=== PATIENT | female | born 1975 | race Caucasian/White ===

== ENCOUNTER 2017-04-23 22:14 | Inpatient (IN) | payer MEDICAID ==
[~2017-04-23] VITALS: Ht 152.4 cm; Wt 79.5 kg
[2017-04-23] MEDS ORDERED: NO HOME MEDS (22:30)
[2017-04-23] MEDS ORDERED: vancomycin/NS 1 GM ADD-VANTAGE 250 ML IV ONE (23:15)
[2017-04-23] MEDS ORDERED: iohexol 300mg/ml 100ml inj. ONE (23:29)
[2017-04-23] MEDS ORDERED: normal saline 1000ML IV soln IVB ONE (23:45)
[2017-04-24] MEDS ORDERED: bisacodyl 10mg suppository rectal RC PRN (00:20)
[2017-04-24] MEDS ORDERED: HYDROmorphone 1 mg/ml syringe IV PRN ×2 (00:20)
[2017-04-24] MEDS ORDERED: diphenhydrAMINE 25mg capsule PO PRN (00:20)
[2017-04-24] MEDS ORDERED: acetaminophen 325mg tablet PO PRN ×2 (00:20)
[2017-04-24] MEDS ORDERED: magnesium hydroxide 30ml (MOM) UD suspension PO PRN (00:20)
[2017-04-24] MEDS ORDERED: mag hydrox/Alum hydrox/simeth 30ml oral suspension PO PRN (00:20)
[2017-04-24] MEDS ORDERED: HYDROcodone/acetaminophen 5mg/325mg tablet PO PRN (00:20)
[2017-04-24] MEDS ORDERED: diphenhydrAMINE 50 mg/ml inj IV PRN (00:20)
[2017-04-24] MEDS ORDERED: acetaminophen 650mg rectal suppository RC PRN (00:20)
[2017-04-24] MEDS ORDERED: ondansetron/PF 4mg/2ml inj IV PRN (00:20)
[2017-04-24] MEDS ORDERED: metoclopramide 5 mg/ml inj IV PRN (00:20)
[2017-04-24] MEDS ORDERED: temazepam 15mg capsule PO PRN (00:32)
[2017-04-24] MEDS ORDERED: nicotine 21mg patch - 24 hr TD ONE (00:35)
[2017-04-24] MEDS ORDERED: vancomycin inj 500 MG in normal saline 100ml IV soln 100 ML IV ONE (00:50)
[2017-04-24 01:30] VITALS: BP 106/65
[2017-04-24] MEDS ORDERED: vancomycin 1,000mg inj IV ONE (01:35)
[2017-04-24] MEDS ORDERED: normal saline 100ml IV soln 100 ML IV ONE (01:40)
[2017-04-24] MEDS: piperacillin/tazo 4.5gm/100ml 100 ML IV SCH ×3 (02:06→16:00)
[2017-04-24] MEDS: normal saline 1000ml 1,000 ML IV SCH ×3 (02:07→20:17)
[2017-04-24 06:00] VITALS: BP 107/71
[2017-04-24 07:16] LABS: MAGNESIUM 2.1 MG/DL (1.5-2.4)
[2017-04-24] MEDS: pantoprazole 40mg Tablet.DR PO SCH (07:41)
[2017-04-24] MEDS: docusate sod 100mg capsule PO SCH ×2 (07:41→20:56)
[2017-04-24] MEDS: HYDROcodone/acetaminophen 10/325mg tab PO PRN ×3 (07:42→20:41)
[2017-04-24] MEDS ORDERED: vancomycin/NS 1 GM ADD-VANTAGE 250 ML IV SCH (08:00)
[2017-04-24] MEDS: heparin, porcine 5000 units/ml vial SQ SCH ×2 (08:00→20:56)
[2017-04-24] MEDS ORDERED: vancomycin/NS 1 GM ADD-VANTAGE 250 ML IV ONE (08:05)
[2017-04-24 08:10] LABS: ALBUMIN 2.3 G/DL (3.4-5.0); ANION GAP 11 (8-16); BLOOD UREA NITROGEN 10 MG/DL (7-18); BUN/CREATININE RATIO 14.3 (6.6-38.0); CALCIUM 8.4 MG/DL (8.5-10.1); CHLORIDE 109 MMOL/L (99-107); GLUCOSE 115 MG/DL (70-104); POTASSIUM 3.7 MMOL/L (3.5-5.1); SODIUM 143 MMOL/L (135-145); TOTAL CARBON DIOXIDE 23.4 MMOL/L (24-32); eGFR > 90 ML/MIN
[2017-04-24 10:00] VITALS: BP 93/55
[2017-04-24 14:00] LABS: BASOPHILS % (AUTO) 0.4 % (0-1); EOSINOPHILS # (AUTO) 0.4 X10'3 (0-0.9); EOSINOPHILS % (AUTO) 3.2 % (0-6); HEMATOCRIT 34.6 % (35.0-45.0); HEMOGLOBIN 11.5 g/dl (12.0-16.0); LYMPHOCYTES # (AUTO) 2.5 X10'3 (1.1-4.8); MEAN CORPUSCULAR HEMOGLOBIN 28.2 PG (27.0-31.0); MEAN CORPUSCULAR HGB CONC 33.2 % (33.0-36.5); MEAN CORPUSCULAR VOLUME 85.2 FL (78-98); MEAN PLATELET VOLUME 7.8 FL (7.4-10.4); MONOCYTES # (AUTO) 0.8 X10'3 (0-0.9); MONOCYTES % (AUTO) 6.2 % (2-12); NEUTROPHILS # (AUTO) 9.2 X10'3 (1.8-7.7); NEUTROPHILS % (AUTO) 71.2 % (42-75); PLATELET COUNT 306 X10'3 (140-440); RED BLOOD COUNT 4.07 X10'6 (4.20-5.60); RED CELL DISTRIBUTION WIDTH 13.6 % (11.5-14.5); WHITE BLOOD COUNT 12.9 X10'3 (4.5-11.0)
[2017-04-24] MEDS: vancomycin/NS 1 GM ADD-VANTAGE 250 ML IV SCH (17:14)
[2017-04-24] MEDS: lactobacillus rhamnosus 10,000 MMU CELLS/CAPSULE PO SCH (17:18)
[2017-04-24 18:00] VITALS: BP 95/52
[2017-04-24 21:14] LABS: URINE AMPHETAMINE SCREEN POSITIVE (Neg); URINE BARBITUATE SCREEN NEGATIVE (Neg); URINE BENZODIAZEPINES SCREEN NEGATIVE (Neg); URINE CANNABINOID SCREEN NEGATIVE (Neg); URINE COCAINE SCREEN NEGATIVE (Neg); URINE METHADONE SCREEN NEGATIVE (Neg); URINE OPIATE SCREEN POSITIVE (Neg); URINE PHENCYCLIDINE SCREEN NEGATIVE (Neg)
[2017-04-24 21:28] LABS: CLARITY,URINE CLEAR (Clear); COLOR,URINE YELLOW (Yellow); GLUCOSE, URINE NEGATIVE (Neg); KETONES,URINE NEGATIVE (Neg); LEUKOCYTE ESTERASE ,URINE NEGATIVE (Neg); NITRITES, URINE NEGATIVE (Neg); OCCULT BLOOD,URINE SMALL (Neg); PROTEIN,URINE TRACE mg/dl (Neg); UA COLLECTION TYPE VOIDED; UROBILINOGEN,URINE 0.2 E.U/dL (0.2-1.0)
[2017-04-24 22:00] VITALS: BP 105/56
[2017-04-24 22:06] LABS: BACTERIA,URINE 2+ /HPF (Neg); MUCUS STRANDS MANY /LPF (Neg); SQUAMOUS EPITHELIAL CELL,UR MANY /LPF (FEW); WBC,URINE 0-4 /HPF (0-4)
[2017-04-25] MEDS: piperacillin/tazo 4.5gm/100ml 100 ML IV SCH ×4 (00:07→23:45)
[2017-04-25] MEDS: vancomycin/NS 1 GM ADD-VANTAGE 250 ML IV SCH ×3 (01:54→17:43)
[2017-04-25] MEDS: HYDROcodone/acetaminophen 10/325mg tab PO PRN ×4 (05:45→21:16)
[2017-04-25] MEDS: normal saline 1000ml 1,000 ML IV SCH ×2 (05:46→16:17)
[2017-04-25 06:00] VITALS: BP 109/65
[2017-04-25 06:39] LABS: BASOPHILS % (AUTO) 0.4 % (0-1); EOSINOPHILS # (AUTO) 0.4 X10'3 (0-0.9); EOSINOPHILS % (AUTO) 4.3 % (0-6); HEMATOCRIT 32.8 % (35.0-45.0); HEMOGLOBIN 10.9 g/dl (12.0-16.0); LYMPHOCYTES # (AUTO) 2.3 X10'3 (1.1-4.8); LYMPHOCYTES % (AUTO) 25.9 % (21-51); MEAN CORPUSCULAR HEMOGLOBIN 28.3 PG (27.0-31.0); MEAN CORPUSCULAR HGB CONC 33.3 % (33.0-36.5); MEAN CORPUSCULAR VOLUME 84.8 FL (78-98); MONOCYTES # (AUTO) 0.5 X10'3 (0-0.9); MONOCYTES % (AUTO) 5.7 % (2-12); NEUTROPHILS # (AUTO) 5.7 X10'3 (1.8-7.7); NEUTROPHILS % (AUTO) 63.7 % (42-75); PLATELET COUNT 310 X10'3 (140-440); RED BLOOD COUNT 3.87 X10'6 (4.20-5.60); RED CELL DISTRIBUTION WIDTH 13.5 % (11.5-14.5)
[2017-04-25 07:00] LABS: ALANINE AMINOTRANSFERASE 18 U/L (12-78); ALBUMIN/GLOBULIN RATIO 0.5 (1.1-1.5); ALKALINE PHOSPHATASE 90 IU/L (46-116); ANION GAP 10 (8-16); ASPARTATE AMINO TRANSFERASE 14 U/L (10-37); BILIRUBIN,TOTAL 0.2 MG/DL (0.1-1.0); BLOOD UREA NITROGEN 10 MG/DL (7-18); BUN/CREATININE RATIO 16.7 (6.6-38.0); CALCIUM 7.9 MG/DL (8.5-10.1); CHLORIDE 108 MMOL/L (99-107); CHOL/HDL RATIO 5.9 (0.00-4.99); CHOLESTEROL 130 MG/DL (0-200); GLUCOSE 101 MG/DL (70-104); HDL CHOLESTEROL 22 MG/DL (35-60); LDL CHOLESTEROL 96 MG/DL (50-100); POTASSIUM 3.8 MMOL/L (3.5-5.1); SODIUM 140 MMOL/L (135-145); TOTAL CARBON DIOXIDE 22.2 MMOL/L (24-32); TOTAL PROTEIN 6.3 G/DL (6.4-8.2); TRIGLYCERIDES 68 MG/DL (20-135); eGFR > 90 ML/MIN
[2017-04-25] MEDS: pantoprazole 40mg Tablet.DR PO SCH (07:30)
[2017-04-25] MEDS: docusate sod 100mg capsule PO SCH ×2 (08:36→21:14)
[2017-04-25] MEDS: lactobacillus rhamnosus 10,000 MMU CELLS/CAPSULE PO SCH ×2 (08:36→17:50)
[2017-04-25] MEDS: heparin, porcine 5000 units/ml vial SQ SCH ×2 (08:38→21:16)
[2017-04-25 10:00] VITALS: BP 93/56
[2017-04-25] MEDS ORDERED: VANCOMYCIN LEVEL IV NR (15:30)
[2017-04-25] MEDS: nicotine 21mg patch - 24 hr TD SCH (17:51)
[2017-04-25 18:00] VITALS: BP 146/82
[2017-04-25 22:00] VITALS: BP 134/70
[2017-04-26] MEDS: vancomycin/NS 1 GM ADD-VANTAGE 250 ML IV SCH ×2 (01:25→09:14)
[2017-04-26] MEDS: normal saline 1000ml 1,000 ML IV SCH ×3 (01:29→22:17)
[2017-04-26 05:26] LABS: BASOPHILS # (AUTO) 0.1 X10'3 (0-0.2); BASOPHILS % (AUTO) 0.7 % (0-1); EOSINOPHILS # (AUTO) 0.3 X10'3 (0-0.9); EOSINOPHILS % (AUTO) 3.4 % (0-6); HEMATOCRIT 35.1 % (35.0-45.0); HEMOGLOBIN 11.7 g/dl (12.0-16.0); LYMPHOCYTES # (AUTO) 2.6 X10'3 (1.1-4.8); LYMPHOCYTES % (AUTO) 30.3 % (21-51); MEAN CORPUSCULAR HEMOGLOBIN 28.2 PG (27.0-31.0); MEAN CORPUSCULAR HGB CONC 33.3 % (33.0-36.5); MEAN CORPUSCULAR VOLUME 84.6 FL (78-98); MONOCYTES # (AUTO) 0.4 X10'3 (0-0.9); NEUTROPHILS # (AUTO) 5.1 X10'3 (1.8-7.7); NEUTROPHILS % (AUTO) 60.6 % (42-75); PLATELET COUNT 312 X10'3 (140-440); RED BLOOD COUNT 4.15 X10'6 (4.20-5.60); RED CELL DISTRIBUTION WIDTH 13.3 % (11.5-14.5); WHITE BLOOD COUNT 8.4 X10'3 (4.5-11.0)
[2017-04-26 05:49] LABS: ALANINE AMINOTRANSFERASE 23 U/L (12-78); ALBUMIN 2.1 G/DL (3.4-5.0); ALBUMIN/GLOBULIN RATIO 0.5 (1.1-1.5); ALKALINE PHOSPHATASE 96 IU/L (46-116); ANION GAP 9 (8-16); ASPARTATE AMINO TRANSFERASE 17 U/L (10-37); BILIRUBIN,TOTAL 0.2 MG/DL (0.1-1.0); BLOOD UREA NITROGEN 10 MG/DL (7-18); BUN/CREATININE RATIO 16.4 (6.6-38.0); CALCIUM 8.6 MG/DL (8.5-10.1); CHLORIDE 108 MMOL/L (99-107); CREATININE 0.61 MG/DL (0.40-0.90); GLUCOSE 97 MG/DL (70-104); SODIUM 141 MMOL/L (135-145); TOTAL CARBON DIOXIDE 23.7 MMOL/L (24-32); TOTAL PROTEIN 6.6 G/DL (6.4-8.2); eGFR > 90 ML/MIN
[2017-04-26 06:00] VITALS: BP 125/78
[2017-04-26] MEDS: HYDROcodone/acetaminophen 10/325mg tab PO PRN ×4 (06:09→20:38)
[2017-04-26] MEDS: docusate sod 100mg capsule PO SCH ×2 (09:14→20:31)
[2017-04-26] MEDS: lactobacillus rhamnosus 10,000 MMU CELLS/CAPSULE PO SCH ×2 (09:14→17:41)
[2017-04-26] MEDS: piperacillin/tazo 4.5gm/100ml 100 ML IV SCH ×3 (09:14→23:48)
[2017-04-26] MEDS: pantoprazole 40mg Tablet.DR PO SCH (09:14)
[2017-04-26] MEDS: nicotine 21mg patch - 24 hr TD SCH (09:14)
[2017-04-26] MEDS: heparin, porcine 5000 units/ml vial SQ SCH ×2 (09:15→20:31)
[2017-04-26 11:00] VITALS: BP 113/67
[2017-04-26] MEDS: vancomycin inj 1,250 MG in normal saline 250ml IV soln 250 ML IV SCH (15:03)
[2017-04-26 18:00] VITALS: BP 111/60
[2017-04-26 22:00] VITALS: BP 129/63
[2017-04-27] MEDS: vancomycin inj 1,250 MG in normal saline 250ml IV soln 250 ML IV SCH ×4 (00:48→16:00)
[2017-04-27 06:00] VITALS: BP_SYST 100; BP_SYST 132; BP_DIAS 64; BP_DIAS 92
[2017-04-27 07:00] LABS: BASOPHILS # (AUTO) 0.1 X10'3 (0-0.2); BASOPHILS % (AUTO) 0.6 % (0-1); EOSINOPHILS # (AUTO) 0.4 X10'3 (0-0.9); EOSINOPHILS % (AUTO) 4.5 % (0-6); HEMATOCRIT 35.6 % (35.0-45.0); HEMOGLOBIN 12.1 g/dl (12.0-16.0); LYMPHOCYTES # (AUTO) 1.9 X10'3 (1.1-4.8); LYMPHOCYTES % (AUTO) 22.2 % (21-51); MEAN CORPUSCULAR HEMOGLOBIN 28.3 PG (27.0-31.0); MEAN CORPUSCULAR HGB CONC 33.9 % (33.0-36.5); MEAN CORPUSCULAR VOLUME 83.5 FL (78-98); MEAN PLATELET VOLUME 7.4 FL (7.4-10.4); MONOCYTES # (AUTO) 0.5 X10'3 (0-0.9); MONOCYTES % (AUTO) 5.3 % (2-12); NEUTROPHILS # (AUTO) 5.8 X10'3 (1.8-7.7); NEUTROPHILS % (AUTO) 67.4 % (42-75); PLATELET COUNT 355 X10'3 (140-440); RED BLOOD COUNT 4.27 X10'6 (4.20-5.60); RED CELL DISTRIBUTION WIDTH 13.6 % (11.5-14.5); WHITE BLOOD COUNT 8.7 X10'3 (4.5-11.0)
[2017-04-27] MEDS: piperacillin/tazo 4.5gm/100ml 100 ML IV SCH ×2 (07:08→15:00)
[2017-04-27] MEDS: lactobacillus rhamnosus 10,000 MMU CELLS/CAPSULE PO SCH ×2 (07:09→17:14)
[2017-04-27] MEDS: pantoprazole 40mg Tablet.DR PO SCH (07:09)
[2017-04-27] MEDS: HYDROcodone/acetaminophen 10/325mg tab PO PRN ×6 (07:09→22:44)
[2017-04-27] MEDS: docusate sod 100mg capsule PO SCH ×2 (07:09→22:35)
[2017-04-27] MEDS: heparin, porcine 5000 units/ml vial SQ SCH ×2 (07:10→22:37)
[2017-04-27] MEDS: nicotine 21mg patch - 24 hr TD SCH (07:10)
[2017-04-27 07:48] LABS: ALANINE AMINOTRANSFERASE 23 U/L (12-78); ALBUMIN 2.3 G/DL (3.4-5.0); ALBUMIN/GLOBULIN RATIO 0.5 (1.1-1.5); ALKALINE PHOSPHATASE 101 IU/L (46-116); ANION GAP 8 (8-16); ASPARTATE AMINO TRANSFERASE 16 U/L (10-37); BILIRUBIN,TOTAL 0.2 MG/DL (0.1-1.0); BLOOD UREA NITROGEN 8 MG/DL (7-18); BUN/CREATININE RATIO 11.4 (6.6-38.0); CALCIUM 8.6 MG/DL (8.5-10.1); CHLORIDE 107 MMOL/L (99-107); GLUCOSE 100 MG/DL (70-104); POTASSIUM 4.1 MMOL/L (3.5-5.1); SODIUM 140 MMOL/L (135-145); TOTAL CARBON DIOXIDE 24.8 MMOL/L (24-32); eGFR > 90 ML/MIN
[2017-04-27] MEDS: LORazepam 2 mg/ml vial IV PRN ×3 (07:59→19:40)
[2017-04-27] MEDS: normal saline 1000ml 1,000 ML IV SCH ×2 (08:17→22:35)
[2017-04-27 10:35] VITALS: BP 133/78
[2017-04-27] MEDS ORDERED: VANCOMYCIN LEVEL IV NR (15:30)
[2017-04-27] MEDS ORDERED: benzocaine/menthol oral lozeng 1 EACH BOX MM PRN (17:45)
[2017-04-27 19:00] VITALS: BP 128/81
[2017-04-27 22:00] VITALS: BP 116/70
[2017-04-28] VITALS: BP 120/76
[2017-04-28] MEDS: piperacillin/tazo 4.5gm/100ml 100 ML IV SCH ×2 (00:29→07:16)
[2017-04-28] MEDS: HYDROcodone/acetaminophen 10/325mg tab PO PRN ×3 (01:10→17:06)
[2017-04-28] MEDS: vancomycin inj 1,250 MG in normal saline 250ml IV soln 250 ML IV SCH (01:11)
[2017-04-28 03:25] LABS: BASOPHILS % (AUTO) 0.3 % (0-1); EOSINOPHILS # (AUTO) 0.3 X10'3 (0-0.9); EOSINOPHILS % (AUTO) 3.2 % (0-6); HEMATOCRIT 34.3 % (35.0-45.0); HEMOGLOBIN 11.6 g/dl (12.0-16.0); LYMPHOCYTES # (AUTO) 2.3 X10'3 (1.1-4.8); LYMPHOCYTES % (AUTO) 22.7 % (21-51); MEAN CORPUSCULAR HEMOGLOBIN 28.4 PG (27.0-31.0); MEAN CORPUSCULAR HGB CONC 33.7 % (33.0-36.5); MEAN CORPUSCULAR VOLUME 84.3 FL (78-98); MEAN PLATELET VOLUME 7.2 FL (7.4-10.4); MONOCYTES # (AUTO) 0.5 X10'3 (0-0.9); MONOCYTES % (AUTO) 4.5 % (2-12); NEUTROPHILS # (AUTO) 7.2 X10'3 (1.8-7.7); NEUTROPHILS % (AUTO) 69.3 % (42-75); PLATELET COUNT 385 X10'3 (140-440); RED BLOOD COUNT 4.07 X10'6 (4.20-5.60); RED CELL DISTRIBUTION WIDTH 13.6 % (11.5-14.5); WHITE BLOOD COUNT 10.3 X10'3 (4.5-11.0)
[2017-04-28 03:45] LABS: ALANINE AMINOTRANSFERASE 24 U/L (12-78); ALBUMIN 2.2 G/DL (3.4-5.0); ALBUMIN/GLOBULIN RATIO 0.5 (1.1-1.5); ALKALINE PHOSPHATASE 92 IU/L (46-116); ANION GAP 5 (8-16); ASPARTATE AMINO TRANSFERASE 20 U/L (10-37); BILIRUBIN,TOTAL 0.2 MG/DL (0.1-1.0); BLOOD UREA NITROGEN 13 MG/DL (7-18); BUN/CREATININE RATIO 17.1 (6.6-38.0); CALCIUM 8.8 MG/DL (8.5-10.1); CHLORIDE 107 MMOL/L (99-107); CREATININE 0.76 MG/DL (0.40-0.90); GLUCOSE 119 MG/DL (70-104); POTASSIUM 4.1 MMOL/L (3.5-5.1); SODIUM 139 MMOL/L (135-145); TOTAL CARBON DIOXIDE 27.2 MMOL/L (24-32); TOTAL PROTEIN 6.8 G/DL (6.4-8.2); eGFR 84 ML/MIN
[2017-04-28] MEDS: normal saline 1000ml 1,000 ML IV SCH ×2 (04:17→12:17)
[2017-04-28 05:00] VITALS: BP 116/67
[2017-04-28] MEDS: pantoprazole 40mg Tablet.DR PO SCH (07:15)
[2017-04-28] MEDS: lactobacillus rhamnosus 10,000 MMU CELLS/CAPSULE PO SCH ×2 (07:15→17:04)
[2017-04-28] MEDS: heparin, porcine 5000 units/ml vial SQ SCH (07:15)
[2017-04-28] MEDS: docusate sod 100mg capsule PO SCH (07:16)
[2017-04-28] MEDS: nicotine 21mg patch - 24 hr TD SCH (07:16)
[2017-04-28] MEDS: LORazepam 2 mg/ml vial IV PRN (07:36)
[2017-04-28] MEDS ORDERED: vancomycin/NS 1 GM ADD-VANTAGE 250 ML IV SCH (08:00)
[2017-04-28 10:00] VITALS: BP 135/82
[2017-04-28] MEDS ORDERED: CEFAZOLIN SODIUM/NORMAL SALINE 100 ML IV SCH (16:00)
[2017-04-28] MEDS ORDERED: CLIN-79 PO (16:03)
[2017-04-29] MEDS ORDERED: VANCOMYCIN LEVEL IV ONE (07:30)
== END 2017-04-28 17:35 | disposition home or self-care (01) | DRG 720 ==
LOC: ER 22:14 → ED HOLD 04-24 00:17 → ORTHO 4S 04-24 01:20
PROVIDERS: ADMIT Family Medicine; ATTEND Family Medicine
DX: A41.9 Sepsis, unspecified organism (principal); E44.0 Moderate protein-calorie malnutrition; L03.116 Cellulitis of left lower limb; F19.10 Other psychoactive substance abuse, uncomplicated; Z68.34 Body mass index [BMI] 34.0-34.9, adult; J02.9 Acute pharyngitis, unspecified; E86.0 Dehydration; E86.1 Hypovolemia; F15.10 Other stimulant abuse, uncomplicated; K31.9 Disease of stomach and duodenum, unspecified; K59.00 Constipation, unspecified; Z87.891 Personal history of nicotine dependence; Z90.710 Acquired absence of both cervix and uterus; Z88.2 Allergy status to sulfonamides; Z98.891 History of uterine scar from previous surgery
CPT/HCPCS: 36415; 73701; 80048; 80053; 80061; 80202; 80305; 81001; 83605; 83735; 83880; 84145; 85025; 85651; 86140; 87040; 87070; 87077; 87186; 96365; 96366; 99285; A6196; A6209; A6212; A6213; A6222; A6223; A6446; A6449; J1644; J2060; J2543; J3370; J7030; Q0163; Q9967

== ENCOUNTER 2021-01-22 00:35 | Inpatient (IN) | payer MEDICAID ==
[~2021-01-22] VITALS: Ht 152.4 cm; Wt 75.0 kg
[~2021-01-22 00:35] MED LIST: CLIN150C8 PO
[2021-01-22 01:33] LABS: BASOPHILS % (AUTO) 0.4 % (0-1); EOSINOPHILS % (AUTO) 0.6 % (0-6); HEMATOCRIT 39.9 % (35.0-45.0); HEMOGLOBIN 13.6 g/dl (12.0-16.0); LYMPHOCYTES % (AUTO) 16.8 % (21-51); MEAN CORPUSCULAR HEMOGLOBIN 28.6 PG (27.0-31.0); MEAN CORPUSCULAR VOLUME 83.9 FL (78-98); MEAN PLATELET VOLUME 8.7 FL (7.4-10.4); MONOCYTES # (AUTO) 0.6 X10'3 (0-0.9); MONOCYTES % (AUTO) 10.3 % (2-12); NEUTROPHILS # (AUTO) 4.4 X10'3 (1.8-7.7); NEUTROPHILS % (AUTO) 71.9 % (42-75); PLATELET COUNT 224 X10'3 (140-440); RED BLOOD COUNT 4.75 X10'6 (4.20-5.60); RED CELL DISTRIBUTION WIDTH 13.6 % (11.5-14.5); WHITE BLOOD COUNT 6.1 X10'3 (4.5-11.0)
[2021-01-22 01:41] LABS: ALBUMIN 3.1 G/DL (3.4-5.0); ANION GAP 8 (8-16); BLOOD UREA NITROGEN 8 MG/DL (7-18); BUN/CREATININE RATIO 9.5 (6.6-38.0); CALCIUM 8.5 MG/DL (8.5-10.1); CHLORIDE 101 MMOL/L (99-107); CREATININE 0.84 MG/DL (0.40-0.90); GLUCOSE 106 MG/DL (70-104); POTASSIUM 3.5 MMOL/L (3.5-5.1); SODIUM 136 MMOL/L (135-145); TOTAL CARBON DIOXIDE 26.7 MMOL/L (24-32); eGFR 73 ML/MIN
[2021-01-22] MEDS ORDERED: clindamycin 600mg/D5W 50ml 50 ML IV ONE (02:10)
[2021-01-22] MEDS ORDERED: magnesium hydroxide 30ml (MOM) UD suspension PO PRN (05:25)
[2021-01-22] MEDS ORDERED: ondansetron/PF 4mg/2ml inj IV PRN (05:25)
[2021-01-22] MEDS ORDERED: mag hydrox/Alum hydrox/simeth 30ml oral suspension PO PRN (05:25)
[2021-01-22] MEDS ORDERED: morphine 2 MG/ML inj. syringe IV PRN (05:25)
[2021-01-22] MEDS ORDERED: acetaminophen 325mg tablet PO PRN (05:25)
[2021-01-22] MEDS: normal saline 1000ml 1,000 ML IV SCH ×2 (05:33→17:49)
--- NOTE | 2021-01-22 07:48 | NUR ---
Radha chopra in ED - 01/22/21 at [address] URIAS AT [facility].
--- NOTE | 2021-01-22 07:49 | NUR ---
DR. URIAS AT BEDSIDE.
[2021-01-22] MEDS ORDERED: dexamethasone 4mg/ml inj IV SCH (08:00)
--- NOTE | 2021-01-22 08:09 | NUR ---
DR. ANTONIO CALLED. TOLD HIM PER PT, DR. URIAS WAS HERE AND PLAN TO OBSERVE AND CONTINUE IV ANTIBOTICS.
[2021-01-22] MEDS: docusate sod 100mg capsule PO SCH ×2 (09:19→19:44)
[2021-01-22] MEDS: dexamethasone inj 8 MG in normal saline 50ml IV soln 50 ML IV SCH ×2 (09:19→17:48)
--- NOTE | 2021-01-22 09:23 | NUR ---
LEFT ELBOW RED AND SWOLLEN. NO DRAINAGE NOTED.
--- NOTE | 2021-01-22 09:48 | NUR ---
received report from SALARY AND WAGE ADMINISTRATORFAINA Dietrich. Pt expected to rm [id number] shortly
[2021-01-22 10:00] VITALS: BP 114/74
--- NOTE | 2021-01-22 10:23 | NUR ---
Page Sent PAGER ID: [phone] MESSAGE: RASHMI [id number]: NEW ADMIT, RUPERTO GUTIERREZ [id number]...CAN I GET AN ORDER FOR PO PN MED? THANK YOU:)
[2021-01-22] MEDS ORDERED: NO HOME MEDS (12:56)
[2021-01-22] MEDS ORDERED: HYDROcodone/acetaminophen 5mg/325mg tablet PO PRN (13:50)
[2021-01-22 14:00] VITALS: BP 118/71
[2021-01-22] MEDS ORDERED: clindamycin 600mg/D5W 50ml 50 ML IV SCH (14:00)
[2021-01-22] MEDS: HYDROcodone/acetaminophen 5mg/325mg tablet PO PRN ×2 (17:50→22:01)
[2021-01-22 18:00] VITALS: BP 97/57
[2021-01-22] MEDS: lactobacillus rhamnosus 10,000 MMU CELLS/CAPSULE PO SCH (19:44)
[2021-01-22 22:00] VITALS: BP 100/98
[2021-01-22] MEDS: clindamycin 600mg/D5W 50ml 50 ML IV SCH (23:58)
[2021-01-23] MEDS: normal saline 1000ml 1,000 ML IV SCH ×2 (01:25→11:25)
[2021-01-23 02:00] VITALS: BP 121/65
[2021-01-23] MEDS: dexamethasone inj 8 MG in normal saline 50ml IV soln 50 ML IV SCH ×2 (02:25→10:06)
--- NOTE | 2021-01-23 02:32 | NUR ---
Decadron bag would not scan-did 3 med checks before admin.
[2021-01-23 06:00] VITALS: BP 125/69
--- NOTE | 2021-01-23 07:50 | NUR ---
Patient in room [facility]TH[facility] 4012. I have received report from ESTEE EISENBERG and had the opportunity to ask questions and assume patient care.
[2021-01-23] MEDS ORDERED: heparin, porcine 5000 units/ml vial SQ SCH (08:00)
[2021-01-23] MEDS: clindamycin 600mg/D5W 50ml 50 ML IV SCH (08:11)
[2021-01-23 08:31] LABS: BASOPHILS % (AUTO) 0.1 % (0-1); EOSINOPHILS % (AUTO) 0 % (0-6); HEMATOCRIT 40.2 % (35.0-45.0); HEMOGLOBIN 13.6 g/dl (12.0-16.0); LYMPHOCYTES # (AUTO) 0.7 X10'3 (1.1-4.8); LYMPHOCYTES % (AUTO) 8.8 % (21-51); MEAN CORPUSCULAR HEMOGLOBIN 28.2 PG (27.0-31.0); MEAN CORPUSCULAR HGB CONC 33.7 g/dL (33.0-36.5); MEAN CORPUSCULAR VOLUME 83.7 FL (78-98); MEAN PLATELET VOLUME 9.1 FL (7.4-10.4); MONOCYTES # (AUTO) 0.3 X10'3 (0-0.9); NEUTROPHILS # (AUTO) 7.5 X10'3 (1.8-7.7); NEUTROPHILS % (AUTO) 88.1 % (42-75); PLATELET COUNT 243 X10'3 (140-440); RED CELL DISTRIBUTION WIDTH 13.8 % (11.5-14.5); WHITE BLOOD COUNT 8.5 X10'3 (4.5-11.0)
[2021-01-23] MEDS: HYDROcodone/acetaminophen 5mg/325mg tablet PO PRN ×2 (08:33→13:29)
[2021-01-23] MEDS: lactobacillus rhamnosus 10,000 MMU CELLS/CAPSULE PO SCH (08:34)
[2021-01-23] MEDS: morphine 2 MG/ML inj. syringe IV PRN ×2 (08:34→13:47)
[2021-01-23] MEDS: docusate sod 100mg capsule PO SCH (08:34)
[2021-01-23 09:13] LABS: ALANINE AMINOTRANSFERASE 25 U/L (12-78); ALBUMIN 2.8 G/DL (3.4-5.0); ALBUMIN/GLOBULIN RATIO 0.7 (1.1-1.5); ALKALINE PHOSPHATASE 93 IU/L (46-116); ANION GAP 13 (8-16); ASPARTATE AMINO TRANSFERASE 14 U/L (10-37); BILIRUBIN,TOTAL 0.1 MG/DL (0.1-1.0); BLOOD UREA NITROGEN 15 MG/DL (7-18); BUN/CREATININE RATIO 26.8 (6.6-38.0); CALCIUM 8.6 MG/DL (8.5-10.1); CHLORIDE 107 MMOL/L (99-107); CREATININE 0.56 MG/DL (0.40-0.90); GLUCOSE 159 MG/DL (70-104); POTASSIUM 4.3 MMOL/L (3.5-5.1); SODIUM 142 MMOL/L (135-145); TOTAL CARBON DIOXIDE 22.4 MMOL/L (24-32); eGFR > 90 ML/MIN
--- NOTE | 2021-01-23 11:10 | NUR ---
Malnutrition Consult: Pt admit DX cellulitis, septic arthritis L elbow, and COVID-19 w/ hx meth abuse per EMR. Pt PO 100% first regular diet meal last night, normal strength, L elbow +2 non-pitting edema likely r/t DX. Pending scaled wt this admit. Pt lacks minimum malnutrition criteria at this time. Will continue to monitor for PO trends and additional protein needs this admit. Rec: 1. continue regular diet 2. monitor for PO trends and ONS needs 3. routine bowel care 4. scaled wt this admit; subsequent weekly wts Addendum: 01/23/21 at [address] Amended: Links added.
[2021-01-23] MEDS ORDERED: LACT1CAP26 PO (12:48)
[2021-01-23] MEDS ORDERED: CLIN-97 PO (12:48)
[2021-01-23] MEDS ORDERED: PRED10TA PO (12:48)
== END 2021-01-23 13:50 | disposition home or self-care (01) | DRG 137 ==
LOC: ER 00:36 → ED HOLD 05:25 → UNDOADMIN 05:25 → ED HOLD 05:28 → ORTHO 4S 10:05 → ED HOLD 10:05
PROVIDERS: ADMIT Internal Medicine; ATTEND Family Medicine
DX: U07.1 COVID-19 (principal); L03.114 Cellulitis of left upper limb; M71.122 Other infective bursitis, left elbow; Z88.2 Allergy status to sulfonamides; Z79.899 Other long term (current) drug therapy; Z98.891 History of uterine scar from previous surgery; Z90.710 Acquired absence of both cervix and uterus
CPT/HCPCS: 36415; 71045; 73080; 80048; 80053; 83605; 85025; 85651; 86140; 87040; 87077; 87635; 96365; 99285; C9803; G0378; J1100; J1644; J2270; J3490; J7030

== ENCOUNTER 2021-11-30 15:03 | Emergency (ER) | payer MEDICAID ==
[~2021-11-30] VITALS: Ht 152.4 cm; Wt 75.0 kg
[~2021-11-30 15:03] MED LIST changes: +CLIN-97 PO; -CLIN150C8 PO; +LACT1CAP26 PO; +PRED10TA PO
[2021-11-30 15:09] VITALS: BP 121/82
[2021-11-30] MEDS ORDERED: CEPH250T PO (16:30)
[2021-11-30] MEDS ORDERED: DOXY100C76 PO (16:30)
== END 2021-11-30 16:47 | disposition home or self-care (01) ==
LOC: ER 15:04
DX: L03.114 Cellulitis of left upper limb (principal); F15.90 Other stimulant use, unspecified, uncomplicated; Z90.710 Acquired absence of both cervix and uterus; Z98.891 History of uterine scar from previous surgery; Z88.2 Allergy status to sulfonamides; Z79.2 Long term (current) use of antibiotics; Z79.899 Other long term (current) drug therapy
CPT/HCPCS: 99283

== ENCOUNTER 2022-03-22 07:35 | Emergency (ER) | payer MEDICAID ==
[~2022-03-22] VITALS: Ht 152.4 cm; Wt 75.0 kg
[~2022-03-22 07:35] MED LIST changes: +CEPH250T PO
[2022-03-22 07:39] VITALS: BP 126/80
[2022-03-22] MEDS ORDERED: ibuprofen tablet 400 MG TABLET PO ONE (08:35)
[2022-03-22] MEDS ORDERED: acetaminophen 325mg tablet PO ONE (08:35)
[2022-03-22] MEDS ORDERED: proCHLORperazine 10mg tablet PO ONE (08:35)
[2022-03-22] MEDS ORDERED: NIRM1TAB PO (08:48)
== END 2022-03-22 09:03 | disposition home or self-care (01) ==
LOC: ER 07:35
DX: U07.1 COVID-19 (principal); F15.10 Other stimulant abuse, uncomplicated; Z98.890 Other specified postprocedural states; Z79.899 Other long term (current) drug therapy; Z88.2 Allergy status to sulfonamides; Z79.1 Long term (current) use of non-steroidal anti-inflammatories (NSAID)
CPT/HCPCS: 87502; 87503; 87635; 99284; C9803; Q0164

== ENCOUNTER 2022-10-22 16:41 | Emergency (ER) | payer MEDICAID ==
[~2022-10-22 16:41] MED LIST changes: +NIRM1TAB PO
[2022-10-22] MEDS ORDERED: normal saline 1000ML IV soln IVB ONE (16:50)
[2022-10-22] MEDS ORDERED: metoprolol tartrate 1mg/ml inj IV ONE (16:55)
--- NOTE | 2022-10-22 16:57 | NUR ---
PT WAS BROUGHT IN BY EMS AND PLACED INTO ROOM 11 - I WAS IN THE HALLWAY ABOUT 15 FT FROM THE DOOR WHEN PT EXITED THE ROOM AND STATED, "I'M LEAVING AND GOING TO [facility]" AND PROCEEDED TO WALK OUT OF ER AND INTO PARKING LOT. MD AWARE. PT WAS SEEN BY MD WHILE SHE WAS STILL ON AMBULANCE GURNEY.
== END 2022-10-22 17:34 | disposition left against medical advice (07) ==
LOC: ER 16:42
DX: R10.9 Unspecified abdominal pain (principal); M54.2 Cervicalgia; Z98.890 Other specified postprocedural states; Z90.49 Acquired absence of other specified parts of digestive tract; F15.10 Other stimulant abuse, uncomplicated; Z88.2 Allergy status to sulfonamides; Z79.899 Other long term (current) drug therapy
CPT/HCPCS: 99283

== ENCOUNTER 2024-03-30 10:54 | Emergency (ER) | payer MEDICAID ==
[~2024-03-30] VITALS: Ht 152.4 cm; Wt 87.1 kg
[~2024-03-30 10:54] MED LIST changes: -CEPH250T PO
[2024-03-30 11:03] VITALS: BP 120/67; RESP 16; TEMP 98.9; O2SAT 96
[2024-03-30] MEDS ORDERED: IBUP-1984 PO (12:00)
[2024-03-30] MEDS ORDERED: PENI500T2 PO (12:00)
[2024-03-30] MEDS ORDERED: HYDR-3965 PO (12:00)
[2024-03-30 12:21] VITALS: PULSE 18
== END 2024-03-30 12:22 | disposition home or self-care (01) ==
LOC: ER 10:55
DX: K02.9 Dental caries, unspecified (principal); K04.7 Periapical abscess without sinus; F15.90 Other stimulant use, unspecified, uncomplicated; Z88.2 Allergy status to sulfonamides; Z90.710 Acquired absence of both cervix and uterus; Z79.1 Long term (current) use of non-steroidal anti-inflammatories (NSAID); Z79.899 Other long term (current) drug therapy; Z98.890 Other specified postprocedural states
CPT/HCPCS: 99283